=== PATIENT | male | born 1965 | race Caucasian/White ===

== ENCOUNTER 2021-11-18 01:29 | Day surgery (SDC) | payer MEDICARE, SELFPAY ==
[2021-11-15 12:38] VITALS: BMI 25.1
--- NOTE | 2021-11-17 13:26 | P.PNAN_ITS ---
Anes - Initial Pre Proc Eval Procedure: Operation Date: 11/18/21 08:00 Proposed Procedures p Esophagogastroduodenoscopy - Eben Hamlin MD Date/Time: 11/17/21 13:26 Surgeon: Eben Hamlin MD Pre Op Diagnosis: GERD Patient Data Age: 55 Gender: M Height: 1.75 m Weight: 77.2 kg Allergies Allergy/AdvReac Type Severity Reaction Status Date / Time No Known Allergies Allergy Unknown Verified 11/18/21 06:45 Home Medications Medication Instructions Recorded Confirmed Type brimonidine 0.1 % eye drops 0.1 drp RIGHT EYE BID 11/15/21 11/18/21 History (Alphagan P) dorzolamide 22.3 mg-timolol 6.8 22.3 ml RIGHT EYE BID 11/15/21 11/15/21 History mg/mL eye drops latanoprost 0.005 % eye drops 0.005 drp RIGHT EYE HS 11/15/21 11/15/21 History loteprednol etabonate 0.5 % eye 0.5 drp RIGHT EYE BID 11/15/21 11/15/21 History drops,suspension omeprazole 40 mg capsule,delayed 40 mg PO DAILY 11/15/21 11/15/21 History release temazepam 15 mg capsule 30 mg PO HS 11/15/21 11/15/21 History testosterone cypionate 200 mg/mL 200 mg IM [id number] 11/15/21 11/15/21 History intramuscular oil valacyclovir 1 gram tablet 1 mg PO PRN PRN Cold Sores 11/15/21 11/15/21 History Patient hx anesthesia problems: none Family hx anesthesia problems: none Results Review: All pre-operative results and documents have been reviewed as part of the pre- operative evaluation. [facility] Past Medical History Medical History (Updated 11/17/21 @ 13:26 by Javier James DO) GERD (gastroesophageal reflux disease) Osteoarthritis Social History Social History (System 11/15/21 @ 08:42 by Ilya Snyder) Smoking status: Never smoker Alcohol intake: current Alcohol use details: socially Substance use: never Substance use type: does not use Living arrangements: with family Spiritual care concerns: No Anes - Eval Final PreProcedure Day of Procedure 11/17/21 13:26 Patient weight: overweight Heart: regular rate and rhythm Lungs: clear to auscultation Airway: Mallampati scale class II Neurological: alert and oriented Last oral intake: >/= 8 hours ASA classification: II Emergent: no Anesthetic plan: proceed Anesthesia type and monitoring: general GIVS and standard monitoring Results Review: All pre-operative results and documents have been reviewed as part of the pre- operative evaluation. Informed Consent: The patient's anesthetic plan and its attendant risks and benefits were discussed with the patient/family/POA. Questions were solicited and answers provided to the satisfaction of the patient/family/POA.
[2021-11-18 06:47] VITALS: BP 124/80; PULSE 65; RESP 20; TEMP 36.3; O2SAT 100
[2021-11-18] MEDS: LACTATED RINGERS 1,000 ML 150 ML IV CONT (06:57)
--- NOTE | 2021-11-18 07:49 | PM.HPGS ---
History of Present Illness History of Present Illness Consent: Risks, benefits, and alternatives have been discussed and questions answered. Patient agrees to proceed with procedure. Chief complaint: GERD Narrative: Estrada Schroeder is a 55 year old male with gerd and chest/throat discomfort better with omeprazole but never had egd Review of Systems Constitutional: Constitutional: Denies headache(s) and Denies weakness Eyes: Eyes: Denies blurry vision ENT: Reports Normal hearing present, Denies headache(s) and Denies neck pain Cardiovascular: Cardiovascular: Denies chest pain and Denies dyspnea Respiratory: Respiratory: Denies dyspnea Gastrointestinal: Gastrointestinal: Reports no additional gastrointestinal complaints Genitourinary: Genitourinary: Denies dysuria Musculoskeletal: Musculoskeletal: Denies neck pain Integumentary/Breasts: Skin/Breast: Denies dry skin Neurologic: Reports Normal hearing present, Denies headache(s) and Denies weakness Psychiatric: Psychiatric: Denies anxiety Endocrine: Endocrine: Denies change in body appearance Hematologic/Lymphatic: Hematologic/Lymphatic: Denies easy bleeding Allergic/Immunologic: Allergic/Immunologic: Denies urticaria PENDING SALE TO [facility] Past Medical History Medical History (Updated 11/18/21 @ 07:49 by Eben Hamlin MD) GERD (gastroesophageal reflux disease) Osteoarthritis Social History Social History (System 11/15/21 @ 08:42 by Ilya Snyder) Smoking status: Never smoker Alcohol intake: current Alcohol use details: socially Substance use: never Substance use type: does not use Living arrangements: with family Spiritual care concerns: No Meds Home Medications and Allergies Home Medications Medication Instructions Recorded Confirmed Type brimonidine 0.1 % eye drops 0.1 drp RIGHT EYE BID 11/15/21 11/18/21 History (Alphagan P) dorzolamide 22.3 mg-timolol 6.8 22.3 ml RIGHT EYE BID 11/15/21 11/15/21 History mg/mL eye drops latanoprost 0.005 % eye drops 0.005 drp RIGHT EYE HS 11/15/21 11/15/21 History loteprednol etabonate 0.5 % eye 0.5 drp RIGHT EYE BID 11/15/21 11/15/21 History drops,suspension omeprazole 40 mg capsule,delayed 40 mg PO DAILY 11/15/21 11/15/21 History release temazepam 15 mg capsule 30 mg PO HS 11/15/21 11/15/21 History testosterone cypionate 200 mg/mL 200 mg IM [id number] 11/15/21 11/15/21 History intramuscular oil valacyclovir 1 gram tablet 1 mg PO PRN PRN Cold Sores 11/15/21 11/15/21 History Allergies Allergy/AdvReac Type Severity Reaction Status Date / Time No Known Allergies Allergy Unknown Verified 11/18/21 06:45 Vital Signs Vital Signs - 24 hr 11/18/21 06:47 Temperature 97.4 F L Pulse Rate 65 Respiratory Rate 20 Blood Pressure 124/80 Pulse Oximetry 100 Oxygen Delivery Room Air Exam Const: General: comfortable and no acute distress HENMT: General nose exam: Normal nares present Eyes: General: appearance normal, both eyes and all related structures Neck: Neck: no JVD Resp: Auscultation: clear to auscultation bilaterally Cardio: Rate: regular rate Rhythm: regular rhythm GI: Inspection: non-distended GI Palp: Yes Soft to palpation Skin: General skin exam: normal color Neuro: General: gait normal Speech: normal speech Extrem: General: normal to inspection Psych: Mental Status: mental status grossly normal Assessment and Plan Assessment and plan (1) GERD (gastroesophageal reflux disease): Code(s): K21.9 - Gastro-esophageal reflux disease without esophagitis Status: Acute Assessment and Plan: egd with bx already on ppi
[2021-11-18 08:03] VITALS: BP 107/74; PULSE 78; RESP 21; O2SAT 96
[2021-11-18 08:13] VITALS: BP 121/80; PULSE 69; RESP 20; O2SAT 99
[2021-11-18 08:23] VITALS: BP 115/78; PULSE 66; RESP 17; O2SAT 99
== END 2021-11-18 08:33 | disposition home or self-care (01) ==
PROVIDERS: PCP Nurse Practitioner Adult Health; Visit Provider Internal Medicine Gastroenterology
PROC: 0DJ08ZZ Inspection of Upper Intestinal Tract, Via Natural or Artificial Opening Endoscopic (ICD-10-PCS; CPT 43235; principal; 2021-11-18 08:00)
DX: K21.9 Gastro-esophageal reflux disease without esophagitis (principal)
CPT/HCPCS: 43239; 88305; J2704; J7120

== ENCOUNTER 2022-03-06 07:35 | Emergency (ER) | payer MEDICARE, SELFPAY ==
[2022-03-06 07:56] VITALS: BP 152/86; PULSE 116; RESP 18; TEMP 37; O2SAT 97
--- NOTE | 2022-03-06 09:50 | PC.NURSE ---
Pt had inj of [id number]/Phentolamine/papaverine last night around midnight.
[2022-03-06 09:51] VITALS: BP 147/99; PULSE 99; RESP 18; O2SAT 99
[2022-03-06 11:29] VITALS: BP 158/99; PULSE 85; RESP 15; O2SAT 100
--- NOTE | 2022-03-06 11:37 | ED.MALEGU ---
HPI - Male Genitourinary General Chief complaint: Urogenital-Male Stated complaint: erection since midnight Time Seen by Provider: 03/06/22 09:58 Source: patient Mode of arrival: ambulatory Limitations: no limitations History of Present Illness HPI Narrative: 56-year-old with a history of, GERD, ED here with complaints of penile erection since last night. Patient states that he self injected with Trimix prescribed by Dr. Lei last night and woke up this morning still erect . complaints of minor discomfort Related Data Home Medications Medication Instructions Recorded Confirmed brimonidine 0.1 % eye drops 0.1 drp RIGHT EYE BID 11/15/21 11/18/21 (Alphagan P) dorzolamide 22.3 mg-timolol 6.8 22.3 ml RIGHT EYE BID 11/15/21 11/15/21 mg/mL eye drops latanoprost 0.005 % eye drops 0.005 drp RIGHT EYE HS 11/15/21 11/15/21 loteprednol etabonate 0.5 % eye 0.5 drp RIGHT EYE BID 11/15/21 11/15/21 drops,suspension omeprazole 40 mg capsule,delayed 40 mg PO DAILY 11/15/21 11/15/21 release temazepam 15 mg capsule 30 mg PO HS 11/15/21 11/15/21 testosterone cypionate 200 mg/mL 200 mg IM [id number] 11/15/21 11/15/21 intramuscular oil valacyclovir 1 gram tablet 1 mg PO PRN PRN Cold Sores 11/15/21 11/15/21 papaverine 150 mg-phentolamin 5 ml intra-cavernosal 03/06/22 mg-alprost 50 mcg intracavernosal soln (Tri-Mix ([id number])) Allergies Allergy/AdvReac Type Severity Reaction Status Date / Time No Known Allergies Allergy Unknown Verified 03/06/22 07:59 Review of Systems Review of Systems: All systems reviewed & are unremarkable except as noted in HPI and below Constitutional: Constitutional: Reports no additional constitutional complaints Eyes: Eyes: Reports no additional eye complaints ENT: Reports system reviewed and no additional complaints, except as documented Cardiovascular: Cardiovascular: Reports no additional cardiovascular complaints Respiratory: Respiratory: Reports no additional respiratory complaints Gastrointestinal: Gastrointestinal: Reports no additional gastrointestinal complaints Genitourinary: Genitourinary: Reports as per HPI Musculoskeletal: Musculoskeletal: Reports no additional musculoskeletal complaints Neurologic: Reports system reviewed and no additional complaints, except as documented PMFSH Past Medical History Medical History GERD (gastroesophageal reflux disease) Osteoarthritis Social History Social History Smoking status: Never smoker Alcohol intake: current Alcohol use details: socially Substance use: never Substance use type: does not use Spiritual care concerns: No Exam Narrative: GENERAL: Well-appearing, well-nourished, and in no acute distress. HEAD: Normocephalic, atraumatic. EYES: PERRLA and EOMI.. NECK: Supple. CHEST: Clear to auscultation. No respiratory distress. HEART: Regular rate and rhythm. No murmur heard. Normal peripheral pulses. ABDOMEN: Soft, nontender, nondistended, normal active bowel sounds. penis is still erect EXTREMITIES: Normal range of motion. No edema. SKIN: Warm, dry, no rash. NEURO: No focal deficits. Alert and oriented x3. PSYCH: Normal mood and affect. Course Course Emergency Course: Consulted urology,. Patient states that it gradually became normal inform Dr. Barroso's no more injection is needed patient feels comfortable going home. Vital Signs Vital signs: Vital Signs Temperature 37.0 C 03/06/22 07:56 Pulse Rate 116 H 03/06/22 07:56 Respiratory Rate 18 03/06/22 07:56 Blood Pressure 152/86 H 03/06/22 07:56 Pulse Oximetry 97 03/06/22 07:56 Oxygen Delivery Room Air 03/06/22 07:56 Temperature 37.0 C 03/06/22 07:56 Pulse Rate 85 03/06/22 11:29 Respiratory Rate 15 03/06/22 11:29 Blood Pressure 158/99 H 03/06/22 11:29 Pulse Oximetry 100 03/06/22
== END 2022-03-06 12:05 | disposition home or self-care (01) ==
PROVIDERS: Emergency Provider Family Medicine; PCP Nurse Practitioner Adult Health
DX: N48.33 Priapism, drug-induced (principal); T44.3X5A Adverse effect of other parasympatholytics [anticholinergics and antimuscarinics] and spasmolytics, initial encounter; K21.9 Gastro-esophageal reflux disease without esophagitis; M19.90 Unspecified osteoarthritis, unspecified site
CPT/HCPCS: 99281; J2370

== ENCOUNTER → 2022-05-25 10:58 | Outpatient (CLI) | payer MEDICARE, SELFPAY ==
--- NOTE | ~2022-05-25 | XR_ITS ---
EXAMINATION: XR shoulder RT min 2V INDICATION: Right shoulder pain TECHNIQUE: Four views of the right shoulder are submitted. COMPARISON: None FINDINGS: Normal alignment. No fracture. There is mild osteoarthritis of the glenohumeral joint and m oderate osteoarthritis of the acromioclavicular joint. Soft tissues are unremarkable. IMPRESSION: 1. Osteoarthritis without acute osseous abnormality. Reviewed, dictated and finalized at location A. RANCE FOLLOW UP SPECIALIST
--- NOTE | ~2022-05-25 | XR_ITS ---
EXAMINATION:[id number] DATE: 05/25/2022 11:12 INDICATION: Neck pain TECHNIQUE: AP, lateral, lateral swimmers and odontoid views of the cervical spine are provided. COMPARISON: None FINDINGS: Alignment is normal. The odontoid process is intact. No fracture is identified. The vertebr al body heights are maintained. There is moderate loss of intervertebral disc space height at C5-6 an d C6-7. There is mild facet and uncovertebral joint osteoarthritis at these levels. Prevertebral soft tissues are normal. IMPRESSION: 1. Mild cervical spondylosis without acute findings. Reviewed, dictated and finalized at location A. ORK ARCHITECT MANAGER
== END ==
PROVIDERS: PCP Internal Medicine; Visit Provider Clinical Nurse Specialist
DX: M19.011 Primary osteoarthritis, right shoulder (principal); M47.892 Other spondylosis, cervical region
CPT/HCPCS: 72040; 73030

== ENCOUNTER 2022-06-01 09:27 | Outpatient (CLI) | payer MEDICARE, SELFPAY ==
[2022-06-01 20:31] LABS: Basophils Absolute Auto 0.1 K/mm3 (0.0-0.1); Basophils Percent Auto 1.1 % (0.2-1.2); Eosinophils Absolute Auto 0.2 K/mm3 (0-0.3); Eosinophils Percent Auto 2.8 % (0-4.4); Hematocrit 49.2 % (42.0-52.0); Hemoglobin 16.1 g/dL (14.0-18.0); Immature Granulocyte Absolute 0.01 K/mm3 (0.00-0.031); Immature Granulocyte Percent A 0.2 % (0-0.5); Lymphocytes Absolute Auto 2.47 K/mm3 (0.9-3.2); Lymphocytes Percent Auto 43.3 % (18.3-44.2); Mean Corpuscular HGB Conc 32.7 g/dl (32-36); Mean Corpuscular Volume 94.8 fl (80-100); Mean Platelet Volume 9.6 fl (7.4-10.4); Monocytes Absolute Auto 0.7 K/mm3 (0.1-0.6); Monocytes Percent Auto 12.5 % (2.6-8.5); Neutrophils Absolute Auto 2.3 K/mm3 (1.3-6.7); Neutrophils Percent Auto 40.1 % (45.5-73.1); Platelet Count Result 305 k/mm3 (150-375); Red Blood Count 5.19 M/mm3 (4.6-6.20); Red Cell Distribution Width 13.6 % (11.5-14.5); White Blood Count 5.7 K/mm3 (4.5-10.0)
[2022-06-01 21:24] LABS: Rheumatoid Factor < 8.6 IU/ML (<12)
[2022-06-01 21:28] LABS: Erythrocyte Sedimentation Rate 4 mm/hr (0-20)
[2022-06-01 21:30] LABS: Alanine Aminotransferase 38 U/L (6-50); Albumin Level 4.7 g/dL (3.5-5.1); Alkaline Phosphatase 82 U/L (38-126); Anion Gap 6 mmol/L (8-16); Aspartate Amino Transferase 65 U/L (17-59); Blood Urea Nitrogen 23 mg/dL (9-20); CRP < 0.5 mg/dL (<1.0); Calcium 8.5 mg/dL (8.4-10.2); Carbon Dioxide 29 mmol/L (22-30); Chloride 102 mmol/L (98-107); Estimated Glomerular Filt Rate > 60; Glucose 101 mg/dL (65-110); Potassium 4.7 mmol/L (3.4-5.0); Sodium 137 mmol/L (137-145)
[2022-06-01 22:23] LABS: Folic Acid 15.9 ng/mL (2.76->20)
[2022-06-01 23:08] LABS: Hemoglobin A1C 5.6 % (<5.7)
[2022-06-02 03:49] LABS: Vitamin D 25 Hydroxy 26.4 ng/mL
[2022-06-05 23:33] LABS: ANA Cascade Screen Negative (Negative)
== END 2022-06-01 09:28 | disposition home or self-care (01) ==
LOC: ANHGOSHLAB 09:28
PROVIDERS: PCP Internal Medicine; Visit Provider Clinical Nurse Specialist
DX: E55.9 Vitamin D deficiency, unspecified (principal); M25.50 Pain in unspecified joint; Z13.228 Encounter for screening for other metabolic disorders; R53.83 Other fatigue; R73.9 Hyperglycemia, unspecified
CPT/HCPCS: 36415; 80053; 82306; 82607; 82746; 83036; 84443; 85025; 85652; 86038; 86140; 86430

== ENCOUNTER 2022-06-13 10:39 | Outpatient (CLI) | payer MEDICARE, SELFPAY ==
[2022-06-13 20:48] LABS: Cholesterol 182 mg/dL (0-200); HDL Direct 38 mg/dL; Triglycerides 148 mg/dL (<150)
[2022-06-13 21:00] LABS: LDL Cholesterol Direct 113 mg/dL
== END 2022-06-13 10:40 | disposition home or self-care (01) ==
LOC: ANHGOSHLAB 10:40
PROVIDERS: PCP Internal Medicine; Visit Provider Clinical Nurse Specialist
DX: E78.5 Hyperlipidemia, unspecified (principal); Z79.899 Other long term (current) drug therapy
CPT/HCPCS: 36415; 80061

== ENCOUNTER 2022-09-15 10:10 | Outpatient (CLI) | payer MEDICARE, SELFPAY ==
[2022-09-15 12:14] LABS: Hematocrit 48.2 % (42.0-52.0)
[2022-09-15 12:58] LABS: Prostate Specific Antigen 1.3 ng/mL (< OR = 4.0)
[2022-09-21 11:32] LABS: Testosterone Total 606 ng/dL (250-1100)
[2022-09-27 22:07] LABS: Estradiol, Ultrasensitive 33 pg/mL (< OR = 29)
== END 2022-09-15 10:11 | disposition home or self-care (01) ==
LOC: ANHGOSHLAB 10:12
PROVIDERS: PCP Internal Medicine; Visit Provider Nurse Practitioner Adult Health
DX: E29.1 Testicular hypofunction (principal); Z12.5 Encounter for screening for malignant neoplasm of prostate
CPT/HCPCS: 36415; 82670; 84153; 84403; 85014; 85018; G0103

== ENCOUNTER 2022-10-25 08:32 | Outpatient (CLI) | payer MEDICARE, SELFPAY ==
--- NOTE | 2022-10-25 08:52 | ECHO_ITS ---
Patient Info Name: Estrada Schroeder Age: 56 years : 1965 Gender: Male Ht: 69 in Wt: 183 lbs BSA: 2.03 m2 HR: 66 bpm BP: 155 / 96 mmHg Heart Rhythm: Sinus Rhythm Technical Quality: Fair Exam Date: 10/25/2022 8:59 AM Exam Location: [facility] Patient Status: Outpatient Admit Date: 10/25/2022 Staff Ordering Physician: Yudelka Bueno Rod Puller And Coiler: Kimmy San RDCS Attending Provider: Yudelka Bueno Referring Physician: Myles PENG; Exam Type: CA echo doppler color flow Study Info Indications Z82.49 - Family history of ischemic heart disease and other diseases of the circulatory system Complete two-dimensional, color flow and Doppler transthoracic echocardiogram is performed. Summary 1. Complete two-dimensional, color flow and Doppler transthoracic echocardiogram is performed. 2. Left ventricular chamber dimension is normal. 3. Left ventricular systolic function is normal, estimated at 60-65%. 4. The left ventricular diastolic function is grade II diastolic dysfunction. 5. E/e' 12 is mildly elevated. 6. There is mild tricuspid valve regurgitation. 7. No pulmonary hypertension, estimated pulmonary arterial systolic pressure is 28 mmHg. Left Ventricle E/e' 12 is mildly elevated. Left ventricular chamber dimension is normal. Left ventricular systolic function is normal, estimated at 60-65%. The left ventricular diastolic function is grade II diastolic dysfunction. Right Ventricle Right ventricular systolic function is normal and with normal TAPSE 2.6 cm. Right ventricular chamber dimension is normal. Left Atria Left atrial chamber dimension is normal. Right Atria Right atrial chamber dimension is normal. Aortic Valve The aortic valve is trileaflet. There is no aortic valve stenosis. There is no aortic valve regurgitation. Pulmonic Valve There is no pulmonic regurgitation. Mitral Valve There is no mitral valve stenosis. There is no mitral valve regurgitation. Tricuspid Valve There is mild tricuspid valve regurgitation. No pulmonary hypertension, estimated pulmonary arterial systolic pressure is 28 mmHg. Pericardium/Pleural There is no pericardial effusion. Inferior Vena Cava Normal inferior vena cava with >50% collapse upon inspiration consistent with normal right atrial pressure, 5 mmHg. Aorta The aortic root size at the sinus of Valsalva is normal. Left Ventricular Outflow Tract Name Value Normal LVOT 2D LVOT Diameter 2.0 cm LVOT Doppler LVOT Peak Gradient 6 mmHg LVOT Mean Gradient 3 mmHg LVOT VTI 23 cm LVOT VTI/AV VTI Ratio 0.7 LVOT Stroke Volume 75 ml LVOT CO 4.9 l/min LVOT CI 2.4 l/min/m2 Pulmonic Valve Name Value Normal RVOT Doppler RVOT Peak Gradient 2 m
== END 2022-10-25 08:33 | disposition home or self-care (01) ==
PROVIDERS: PCP Internal Medicine; Visit Provider Clinical Nurse Specialist
DX: R06.02 Shortness of breath (principal); Z82.49 Family history of ischemic heart disease and other diseases of the circulatory system; Z82.79 Family history of other congenital malformations, deformations and chromosomal abnormalities
CPT/HCPCS: 93306

== ENCOUNTER 2023-03-20 09:30 | Outpatient (CLI) | payer MEDICARE, SELFPAY ==
[2023-03-20 13:15] LABS: Anion Gap 8 mmol/L (8-16); Blood Urea Nitrogen 22 mg/dL (9-20); Carbon Dioxide 27 mmol/L (22-30); Chloride 102 mmol/L (98-107); Estimated Glomerular Filt Rate > 60; Glucose 91 mg/dL (65-110); Potassium 4.6 mmol/L (3.4-5.0); Sodium 137 mmol/L (137-145)
== END 2023-03-20 09:31 | disposition home or self-care (01) ==
LOC: ANHGOSHLAB 09:31
PROVIDERS: PCP Internal Medicine; Visit Provider Clinical Nurse Specialist
DX: I51.89 Other ill-defined heart diseases (principal)
CPT/HCPCS: 36415; 80048

== ENCOUNTER 2023-06-15 09:28 | Outpatient (CLI) | payer MEDICARE, SELFPAY ==
--- NOTE | ~2023-06-15 | XR_ITS ---
Clinical Indication: Bronchitis PA and lateral views of the chest: Comparison: None Findings: The lungs are clear, without evidence of focal consolidation or pleural effusion. Cardiome diastinal silhouette is within normal limits. Bones and soft tissues are unremarkable. Impression: Normal chest. Reviewed, dictated and finalized at [facility]. NSED VETERINARY TECHNICIAN Impression: Normal chest.
== END 2023-06-15 09:29 ==
PROVIDERS: PCP Nurse Practitioner; Visit Provider Nurse Practitioner
DX: J40 Bronchitis, not specified as acute or chronic (principal)
CPT/HCPCS: 71046

== ENCOUNTER 2023-10-05 09:17 | Outpatient (CLI) | payer MEDICARE, SELFPAY ==
[2023-10-05 12:45] LABS: Basophils Absolute Auto 0.1 K/mm3 (0.0-0.1); Basophils Percent Auto 0.8 % (0.2-1.2); Eosinophils Absolute Auto 0.2 K/mm3 (0-0.3); Eosinophils Percent Auto 3.3 % (0-4.4); Hematocrit 48.6 % (42.0-52.0); Hemoglobin 16.1 g/dL (14.0-18.0); Immature Granulocyte Absolute 0.01 K/mm3 (0.00-0.031); Immature Granulocyte Percent A 0.2 % (0-0.5); Lymphocytes Absolute Auto 2.21 K/mm3 (0.9-3.2); Lymphocytes Percent Auto 36.5 % (18.3-44.2); Mean Corpuscular HGB Conc 33.1 g/dl (32-36); Mean Corpuscular Hemoglobin 31.3 pg (26-34); Mean Corpuscular Volume 94.6 fl (80-100); Mean Platelet Volume 9.9 fl (7.4-10.4); Monocytes Absolute Auto 0.8 K/mm3 (0.1-0.6); Monocytes Percent Auto 12.7 % (2.6-8.5); Neutrophils Absolute Auto 2.8 K/mm3 (1.3-6.7); Neutrophils Percent Auto 46.5 % (45.5-73.1); Platelet Count Result 275 k/mm3 (150-375); Red Blood Count 5.14 M/mm3 (4.6-6.20); Red Cell Distribution Width 13.4 % (11.5-14.5); White Blood Count 6.1 K/mm3 (4.5-10.0)
[2023-10-05 12:51] LABS: Alanine Aminotransferase 25 U/L (6-50); Albumin Level 4.4 g/dL (3.5-5.1); Alkaline Phosphatase 73 U/L (38-126); Anion Gap 5 mmol/L (4-12); Aspartate Amino Transferase 58 U/L (17-59); Bilirubin,Total 0.9 mg/dL (0.2-1.3); Blood Urea Nitrogen 24 mg/dL (9-20); Calcium 8.6 mg/dL (8.4-10.2); Carbon Dioxide 30 mmol/L (22-30); Chloride 101 mmol/L (98-107); Cholesterol 214 mg/dL (0-200); Estimated Glomerular Filt Rate > 60; Glucose 110 mg/dL (65-110); HDL Direct 40 mg/dL; Potassium 4.5 mmol/L (3.4-5.0); Sodium 136 mmol/L (137-145); Triglycerides 95 mg/dL (<150)
[2023-10-05 13:02] LABS: LDL Cholesterol Direct 141 mg/dL
== END 2023-10-05 09:18 | disposition home or self-care (01) ==
LOC: ANHGOSHLAB 09:20
PROVIDERS: PCP Nurse Practitioner; Visit Provider Nurse Practitioner
DX: E78.5 Hyperlipidemia, unspecified (principal); Z12.5 Encounter for screening for malignant neoplasm of prostate; Z13.228 Encounter for screening for other metabolic disorders
CPT/HCPCS: 36415; 80053; 80061; 85025

== ENCOUNTER 2024-02-26 13:00 | Outpatient (CLI) | payer MEDICARE, SELFPAY ==
[2024-02-26 19:30] LABS: Cholesterol 200 mg/dL (0-200); HDL Direct 36 mg/dL; Triglycerides 78 mg/dL (<150)
[2024-02-26 19:40] LABS: LDL Cholesterol Direct 127 mg/dL
== END 2024-02-26 13:01 | disposition home or self-care (01) ==
PROVIDERS: PCP Internal Medicine; Visit Provider Nurse Practitioner
DX: E78.5 Hyperlipidemia, unspecified (principal)
CPT/HCPCS: 36415; 80061; 82172

== ENCOUNTER 2024-10-17 14:01 | Outpatient (CLI) | payer MEDICARE, SELFPAY ==
--- OUTSIDE RECORDS SUMMARY | 2024-10-17 14:04 | XMS_ITS | Continuity of Care Document ---
Author Organization [facility] Address [address] [place] [address] [address] [place] [address] Phone Care Team Providers Care Caramel Candy Maker Helper Name Role Phone Sarah BECERRA FACS, lEiecer Unavailable Unavailab le Advance Directives Directive Yes / No Effective Date File Name No Information Encounters Encounter Description Practice Location Reason(s) For Visit Diagnoses Date Provider Providers Copied on Encounter [facility], [id number] [place] [address] [address], [place], [place], [id number], tel:[phone] SEC Graciela Campuzano No Information Mar-0 1-200 4 Sarah Gonzáles. [address] [place] [address] [facility], [place], [address], [place], [place], [id number], [place]. tel:[phone] Referring Provider: Eliecer Plata, [address] [place] [address] [facility], [place] [address], [place], [address] . tel:[phone] Family History Family Member Type Diagnosis Age At Onset No Information Payers Payer name Insurance type Covered democrat ID Authoriza tion(s) [place] [id number] Social History Type Description Quantity Date Captured Comments Sex Male Smoking Status No Information Chief Complaint And Reason For Visit No Information Reason For Referral Reason For Referral No Information History Of Present Illness Encounter Date Complaint History Of Prese nt Illness No Information Functional Status Date Functional Assessmen t No Information Instructions Date Instruction Additional Infor mation No Information Assessments Type Assessment Date No Information Patient Care Teams Name Effective Dates (start - stop) Status Members No Information
--- OUTSIDE RECORDS SUMMARY | 2024-10-17 14:04 | XMS_ITS | Clinical Summary ---
Author Organization [facility] Address [address] [place] [id number] Care Team Providers Care Sales Management Trainee Name Role Phone Erika Kinsey MARY Primary Care Provider [phone] Social History Tobacco Use Types Packs/Day Years Used Date Smoking Tobacco: Never Assessed Sex and Gender Information Value Date Recorded Sex Assigned at Not on file Legal Sex Male 8:16 AM CDT Gender Identity Not on file Sexual Orientation Not on file Plan of Treatment Health Maintenance Due Date Last Done Comments Colorectal Cancer Screening Colonoscopy (10 Years) 1965 Annual Physical 12/28/1966 Hepatitis C 12/28/1981 DTaP, Tdap and Td Vaccines ( 1 - Tdap) 12/28/1982 Pneumococcal Vaccine: 50+ Ye ars (1 of 1 - PCV) 12/28/2013 Zoster Vaccines (1 of 2) 12/28/2013 COVID-19 Vaccine ( - 2023-2 5 season) 2023 RSV Immunization or 60+ Years (1 - 1-dose 75+ series) 12/28/2038 Meningococcal B Vaccine Aged Out No l onger eligible based on patient's age to complete this topic Meningococcal Vaccine Aged Out No omid gustabo eligible based on patient's age to complete this topic RSV Immunizations Under 20 Months Aged Out No longer eligible based on patient's age to complete this topic Insurance MEDICARE Care Teams Sales Management Trainee Relationship Specialty Start Date End Date Erika Kinsey NP [address] [place] [address] PCP - General NURSE PRACTITIONER 07/23/19
[2024-10-17 18:43] LABS: Hematocrit 47.4 % (42.0-52.0); Hemoglobin 15.6 g/dL (14.0-18.0); Immature Granulocyte Percent A 0.1 % (0-0.5); Lymphocytes Absolute Auto 2.46 K/mm3 (0.9-3.2); Mean Corpuscular HGB Conc 32.9 g/dl (32-36); Mean Corpuscular Hemoglobin 30.9 pg (26-34); Mean Corpuscular Volume 93.9 fl (80-100); Nucleated Red Blood Cells Absolute Auto 0.000 K/mm3 (0.0-0.012); Nucleated Red Blood Cells Perc 0.0 % (0.0-0.2); Platelet Count Result 303 k/mm3 (150-375); Red Blood Count 5.05 M/mm3 (4.6-6.20); White Blood Count 7.6 K/mm3 (4.5-10.0)
[2024-10-17 18:49] LABS: Alanine Aminotransferase 41 U/L (6-50); Albumin Level 4.5 g/dL (3.5-5.1); Alkaline Phosphatase 84 U/L (38-126); Anion Gap 11 mmol/L (4-12); Aspartate Amino Transferase 40 U/L (17-59); Bilirubin,Total 1.2 mg/dL (0.2-1.3); Blood Urea Nitrogen 25 mg/dL (9-20); Calcium 9.3 mg/dL (8.4-10.2); Carbon Dioxide 24 mmol/L (22-30); Chloride 104 mmol/L (98-107); Cholesterol 167 mg/dL (0-200); Estimated Glomerular Filt Rate > 60; Glucose 98 mg/dL (65-110); HDL Direct 50 mg/dL; Potassium 4.3 mmol/L (3.4-5.0); Sodium 139 mmol/L (137-145); Total Protein 7.8 g/dL (6.3-8.2); Triglycerides 64 mg/dL (<150)
[2024-10-17 19:24] LABS: Prostate Specific Antigen 1.7 ng/mL (< OR = 4.0)
== END 2024-10-17 14:02 | disposition home or self-care (01) ==
LOC: ANHGOSHLAB 14:02
PROVIDERS: PCP Internal Medicine; Visit Provider Nurse Practitioner
DX: E78.2 Mixed hyperlipidemia (principal); Z12.5 Encounter for screening for malignant neoplasm of prostate; Z13.228 Encounter for screening for other metabolic disorders
CPT/HCPCS: 36415; 80053; 80061; 84153; 85025; G0103